=== PATIENT | male | born 1950 | race Two or more races ===

== ENCOUNTER 2024-04-03 06:22 | Inpatient (IN) | payer MEDICARE, OTHER ==
[2024-03-31 11:24] LABS: Urine Bacteria None Seen /hpf (None Seen)
[2024-03-31 11:59] LABS: Basophils # (auto) 0 10 ^3/uL (0-0.2); Basophils % (auto) 0.2 % (0.0-2.0); Eosinophils # (auto) 0.1 10 ^3/uL (0-0.8); Eosinophils % (auto) 1.8 % (0.0-7.0); Hematocrit 40.8 % (41.0-53.0); Hemoglobin 13.5 g/dL (13.5-17.5); Lymphocytes % (auto) 13.3 % (10.0-50.0); Mean Corpuscular Hgb Conc. 33.1 g/dL (32.0-36.0); Mean Corpuscular Volume 90.7 fL (80.0-100.0); Monocytes # (auto) 0.5 10 ^3/uL (0-1.3); Monocytes % (auto) 7.4 % (0.0-12.0); Neutrophils # (auto) 5.6 10 ^3/uL (1.6-8.6); Neutrophils % (auto) 77.3 % (37.0-80.0); Platelet Count (auto) 139 10^3/uL (140-450); Red Cell Distribution Width 14.4 % (11.8-14.3); White Blood Cell 7.2 10^3/uL (4.4-10.8)
[2024-03-31 12:06] LABS: INR 1.03 (0.9-1.15); Partial Thromboplastin Time 26.9 SEC (24.5-34.5); Prothrombin Time 10.9 sec (9.3-11.8)
[2024-03-31 12:14] LABS: Urine Blood Negative /uL (Negative); Urine Clarity Clear (Clear); Urine Color Yellow (Yellow); Urine Mucus FEW (None Seen); Urine Protein, UAD 1+ (Negative); Urine Specific Gravity 1.038 (1.001-1.035); Urine Squamous Epithelial Cell FEW /hpf (<5); Urine Urobilinogen 3 mg/dL (Negative); Urine WBC 110 /HPF (0-3); Urine pH 6.5 (5.0-9.0)
[2024-03-31 12:32] LABS: Albumin 4.6 g/dL (3.2-4.8); Alkaline Phosphatase 83 U/L (46-116); Anion Gap 8 (5-15); Aspartate Aminotransferase 24 U/L (13-40); BUN/Creatinine Ratio 10.3 (10.0-20.0); Blood Urea Nitrogen 13 mg/dL (9-23); Calcium 10.3 mg/dL (8.7-10.4); Carbon Dioxide 28 mmol/L (20-31); Chloride 105 mmol/L (98-107); Potassium 5.1 mmol/L (3.5-5.1); Sodium 141 mmol/L (136-145); Total Protein 7.2 g/dL (5.7-8.2)
[2024-03-31 12:33] LABS: Alanine Aminotransferase 61 U/L (7-40); Bilirubin, Total 1.6 mg/dL (0.2-1.0); Glucose 258 mg/dL (74-106)
[~2024-04-03] VITALS: Ht 188 cm; Wt 106.6 kg
[~2024-04-03 06:22] MED LIST: ATOR80TA PO; BACL20TA PO; FLUO40CA PO; GLIM4TAB42 PO; IBUP-1456 PO; LOSA-533 PO; METF-372 PO; METO25TA5 PO; PIO30T PO
[2024-04-03] MEDS: CIPROFLOXACIN 400MG/200ML 400 ML IV ONE (06:33)
[2024-04-03] MEDS: TRANEXAMIC ACID 20 ML ONE (06:35)
[2024-04-03] MEDS: ceFAZolin 2 GM/D5W100ml 100 ML IV ONE (06:43)
[2024-04-03] MEDS: ACETAMINOPHEN IV 1000 MG/100ML (10MG/ML) IV ONE (06:45)
[2024-04-03] MEDS: GABAPENTIN 400 MG CAP PO ONE (06:45)
[2024-04-03] MEDS: oxyCODONE ER 20 MG TAB PO ONE (06:45)
[2024-04-03] MEDS: MAGNESIUM SULFATE 1GM/100ML 100 ML IV ONE (06:46)
[2024-04-03] MEDS: LIDOCAINE 2%HCL (LOCAL ANESTH.) INJ 10ml MDV ONE (06:46)
[2024-04-03] MEDS: LIDOCAINE 4MG/ML IV SOLN 500 ML IV ONE (06:46)
[2024-04-03] MEDS ORDERED: LIDOCAINE 2% TOPICAL JELLY 5 ML URJT TOP ONE (06:55)
[2024-04-03] MEDS: TRANEXAMIC ACID 10 ML ONE (06:55)
[2024-04-03] MEDS ORDERED: ROCURONIUM 10MG/ML 10ML VIAL IV ONE (06:59)
[2024-04-03] MEDS ORDERED: PROPOFOL 10 MG/ML 20 ML IV ONE ×3 (06:59→10:16)
[2024-04-03] MEDS ORDERED: GLYCOPYRROLATE 0.2 MG/ML 1ML VIAL ONE (06:59)
[2024-04-03] MEDS ORDERED: DexAMETHasone SOD PHOS 10MG/1ML VIAL INJ ONE (07:03)
[2024-04-03] MEDS ORDERED: SODIUM CHLORIDE LOCK 10 ML ONE ×2 (07:03→08:48)
[2024-04-03] MEDS ORDERED: LIDOCAINE 1% INJ PF 5ML AMP ONE (07:03)
[2024-04-03] MEDS ORDERED: ONDANSETRON HCL 4 MG/2 ML VIAL ONE (07:03)
--- NOTE | 2024-04-03 07:18 | DVHHP2 ---
History Allergies: Coded Allergies: NO KNOWN ALLERGIES (Unverified , 03/21/24) Chief Complaint: Patient is complaining of a headache, balance issues and difficulty walking due to a shuffling gait Present Illness(Onset/Duration Patient has been suffering for cervical symptoms for over a year Noncontributory in this case Exam Exam General Appearance: Normal HEENT: Normal ENT Inspection Neck: None, Non-Tender, Normal, Normal Inspection Respiratory: No Accessory Muscle Use, None Cardiovascular: No Edema, No JVD, None Gastrointestinal: Other (No abdominal complaints) Extremities: Normal capillary refill, Normal inspection, Normal range of motion Neurologic: Other (Patient states he has a shuffling type gait due to inability to biggest feet up all the way, he is also having balance issues) Cerebellar Function: Ataxia Reflexes: Normal Skin: None Plan Additional comments: Patient here is here for elective surgery with Dr. Huseyin Beltran C3-6 anterior cervical diskectomy and fusion with instrumentation and bone graft. The patient was informed of the risks and benefits of the procedure. These include but are not limited to complications of anesthesia, postoperative infection, incomplete relief of symptoms, recurrence of symptoms, damage to blood vessels, nerves and tendons, deep venous thrombosis, pulmonary embolism and possible need for repeat surgery in the future. The risks/benefits/alternatives of surgery including but not limited to pain, bleeding, infection, damage to surrounding soft tissue structures, need for reoperation or future surgery, persistent pain/disability/deformity, pseudoarthrotsis, bone graft collapse or extrusion of interbody device, instrumentation failure, need for instrumentation removal, dural tear, temporary or permanent nerve root damage, paralysis, stroke, deep vein thrombosis, pulmonary embolism, and any associated anesthetic risk (dry mouth, sore throat, dental damage, myocardial infarction, respiratory depression, blindness) were described to the patient in detail and the patient wishes to proceed. No guarantee of surgical outcome/improvement was implied. All of the questions were answered thoroughly and consents were obtained. We will obtain all the necessary preop tests in order for the patient to be cleared medically. Call with questions Tayler Woods [facility] Orthopaedic Spine Surgery nurse practitioner For Dr Lucius Beltran Patient was examined, chart reviewed, labs evaluated, and diagnostic studies and findings analyzed. Case was discussed with Dr. Huseyin Beltran who formulated the plan of care. This medical document was created using an electronic medical record system with Dragon computerized dictation system. Although this document has been carefully reviewed, there might still be some phonetic and typographical errors. These areas are purely typographical due to imperfections of the software programs, and do not reflect any compromise in the patient's medical care. ZOEY WOODS NP Apr 03, 2024 07:18
[2024-04-03] MEDS ORDERED: fentaNYL CITRATE 100 MCG/2 ML VL ONE (07:34)
[2024-04-03] MEDS ORDERED: ESMOLOL HCL 10 ML IV ONE (08:01)
[2024-04-03] MEDS ORDERED: ePHEDrine SULFATE 50 MG/ML AMP ONE (08:48)
[2024-04-03] MEDS ORDERED: NITROGLYCERIN 0.4 MG SL TAB SL PRN (10:45)
[2024-04-03] MEDS ORDERED: MORPHINE SULFATE INJ 2 MG/ml SYRG IV PRN ×2 (10:45)
--- NOTE | 2024-04-03 10:50 | DVHOP2 ---
Operative Report - 2 Report Details Date: 04/03/24 Preop Diagnosis: cervical spinal stenosis with MRI findings of cord signal changes causing myeloradiculopathy Postop Diagnosis: same as pre op Surgeon: Huseyin Beltran MD [place] Wheel Worker: Amalia Woods NP Anesthesiologist: David Rosenberg CRNA Anesthesia: General Consent: The patient was informed of the risks and benefits of the procedure. These include but are not limited to complications of anesthesia, postoperative infection, incomplete relief of symptoms, recurrence of symptoms, damage to blood vessels, nerves and tendons, deep venous thrombosis, pulmonary embolism and possible need for repeat surgery in the future. 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 Cervical Degenerative Disk Disease and Spinal Stenosis Causing incapacitating neck pain, radiculopathy and progressive neurologic deficit Procedure: Cervical 3 to 4 anterior cervical discectomy with Cervical 3-4 foraminotomies and facetectomies to decompression the spinal canal and Cervical 4 nerve roots Cervical 4 to 5 anterior cervical discectomy with Cervical 4-5 foraminotomies and facetectomies to decompression the spinal canal and Cervical 5 nerve roots Cervical 5 to 6 anterior cervical discectomy with Cervical 5-6 foraminotomies and facetectomies to decompression the spinal canal and Cervical 6 nerve roots Cervical 3-6 anterior cervical Fusion Cervical 3-6 anterior cervical instrumentation with freestanding cages Cervical 3-4 placement of allograft prosthetic device Cervical 4-5 placement of allograft prosthetic device Cervical 5-6 placement of allograft prosthetic device Microscope for micro dissection Surgeon: Huseyin Beltran MD Anesthesia: General Assist: Amalia Woods NP Fluids and EBL: see anesthesia note Procedure Note: The patient was seen in the Pre-anesthesia Care Unit and the site of the incision was initialed by me with a felt tipped marker. All questions by the patient were answered to the satisfaction of the patient and the chart was reviewed. The patient was taken to the operating room and placed supine on the [facility] top table. General anesthesia was induced. Neuromonitoring leads were placed. A rolled towel was placed between the shoulder blades to hyperextend out the chest which will allow better exposure of the cervical spine. Halter traction to 10 pounds was placed. The arms were padded and adducted to the patients side making sure all pulses in the hands were present. Tape traction was undertaken on the shoulders to give us better radiographic exposure of the distal cervical spine. A gel-pad was placed under the occiput and 5 degrees of extension was placed on the neck without adverse effects to the patient. The anterior neck was prepped and draped. Pre-operative antibiotics were given 30 minutes prior to the start of the procedure. A c-arm fluoroscope was used to ga out the incision site. At this time, a time out was taken per usual protocol. Next an incision was made through the skin with a 15 blade scalpel through the subcutaneous tissue down to the platysma. Self-retainers were placed. The platysma was incised along the longitudinal border with a Metzenbaum scissors. Blunt dissection was made through the deep cervical and pre-tracheal fascia taking care to protect the carotid sheath laterally and the Trachea/e sophagus medially. The dissection was carried down to the prevertebral fascia. Any crossing vessels were ligated using a vascular clip or coagulated with a bovie. An esophageal retractor was next used to retract the trachea/esophagus and a bent [address] through the anterior annulus of the cervical disk and a lateral C-arm fluoroscopic image was taken to confirm that we were at the correct level. Next, bovie electrocautery was used to expose the bones of cervical 3,4,5,6 and bipolar electrocuatery was used to lift up the Longus colli and capitus muscles. Black-Belt Self Retainers were used to retract the longus colli and capitus muscles bilaterally as well as the trachea/esophagus to the right and the carotid sheath to the left. Smooth thin Black-Belt retractors were placed proximally and distally and a needle was placed again in the anterior annulus of the disk and an image taken to confirm the correct level. At this point, the microscope was wheeled in and an 11 blade scalpel incised the anterior annulus of the cervical 3/4 and 4/5 and 5/6 disks. Next, straight and curved curettes removed the remainder of the disks all the way down to the posterior longitudinal ligament. Carefully, a Mike number one rongeur incised the posterior longitudinal ligament at the lateral end of the above disks and using a micro, blunt tip nerve hook to separate the posterior longitudinal ligament from the dura, alternating 1 mm and 2 mm Kerison rongeurs removed the posterior longitudinal ligament. Next, Kerison 1mm and 2 mm rongeurs were alternated to get under the uncinate processes and undercut them to perform foraminotomies and factectomies at the cervical 3/4 and 4/5 and 5/6 levels to decompress the central canal and cervical 4,5 and 6 nerve roots. Next the microscope was wheeled away and the c-arm fluoroscope was wheeled into the field and a lateral image was obtained. Increasing size graft trials were used starting at a 5 mm thick size until the proper tension in the disk space and height catholic obtained. We then placed final free standing cages at C3/4 and 4/5 and 5/6. Satisfactory placement was confirmed in the AP and lateral views using a C-arm fluoroscope. Copious irrigation of the wound with sterile saline and all bleeding was controlled before closure initiated. At this point, a [address] was [address] deep to the Platysma muscle and the Platysma was approximated with one interrupted 0-Vicryl suture. The subcutaneous tissue was closed with interrupted 2-0 vicryl sutures and the skin was closed with jono. Sterile dressings were placed and a cervical collar placed, the patient extubated, transferred to the stretcher and taken to the Recovery Room in unremarkable condition. Other Notes: Following the case, in PACU, the patient had placement of a [place] J equivalent cervical collar and external bone stimulator Condition Stable Disposition Still a Patient HUSEYIN BLETRAN MD Apr 03, 2024 10:50
[2024-04-03 10:59] VITALS: O2SAT 99
[2024-04-03] MEDS ORDERED: hydrALAZINE HCL 20 MG/ML VL IV PRN (11:15)
[2024-04-03] MEDS ORDERED: HYDROmorphone HCL 2 MG/ML VL/or syr IV PRN (11:15)
[2024-04-03] MEDS ORDERED: ePHEDrine SULFATE 50 MG/ML AMP IV PRN (11:15)
[2024-04-03] MEDS ORDERED: fentaNYL CITRATE 100 MCG/2 ML VL IV PRN (11:15)
[2024-04-03] MEDS ORDERED: NALOXONE HCL 0.4 MG/ML VIAL IV PRN (11:15)
[2024-04-03] MEDS ORDERED: FLUMAZENIL 0.1 MG/ML INJ 10ML MDV IV PRN (11:15)
[2024-04-03] MEDS ORDERED: ONDANSETRON HCL 4 MG/2 ML VIAL IV PRN (11:15)
--- NOTE | 2024-04-03 11:39 | DVH ---
C-ARM FLUOROSCOPY: PROCEDURE: Cervical spine surgery FLUOROSCOPY TIME: 14.9 seconds DAP: 0.67 mgy FINDINGS: Spot intraoperative C arm radiographs demonstrating C3-C6 surgical procedure. IMPRESSION: Please refer to surgical report for detailed findings.
--- NOTE | 2024-04-03 11:39 | DVH ---
C-ARM FLUOROSCOPY: PROCEDURE: C3 through C6 anterior cervical discectomy and fusion FLUOROSCOPY TIME: 14 sec DAP: 0.67 mgy mgy FINDINGS: Spot intraoperative C arm radiographs demonstrating c3-c6 anterior cervical discetomy and fusion. IMPRESSION: Please refer to surgical report for detailed findings.
[2024-04-03 11:57] VITALS: PULSE 66; RESP 15; O2SAT 96
[2024-04-03 13:00] VITALS: BP 155/67; PULSE 67; RESP 18; TEMP 98.1; O2SAT 95
[2024-04-03] MEDS ORDERED: KETAMINE 50mg/ML 10ml Vial (500mg/10ml) IV ONE (15:18)
[2024-04-03] MEDS: CYCLOBENZAPRINE HCL 10 MG TAB PO SCH (15:33)
[2024-04-03] MEDS: HYDROcodone-ACET 10/325MG TAB PO PRN (15:33)
[2024-04-03] MEDS: ceFAZolin 1GM/50ML 50 ML IV SCH (15:39)
[2024-04-03] MEDS: D5W/SOD CHLO 0.9% 1,000 ML IV SCH (16:39)
[2024-04-03 17:00] VITALS: BP 140/70; PULSE 67; RESP 16; TEMP 98.1; O2SAT 95
[2024-04-03] MEDS: ONDANSETRON HCL 4 MG/2 ML VIAL IV PRN (18:36)
[2024-04-03 20:00] VITALS: BP 140/51; PULSE 66; PULSE 68; RESP 17; RESP 18; TEMP 98.6; O2SAT 96; O2SAT 97
[2024-04-03] MEDS: oxyCODONE HCL 5MG TAB PO PRN (20:31)
[2024-04-03] MEDS: DOCUSATE SOD 100 MG CAP PO SCH (20:31)
[2024-04-04] VITALS (9 sets, daily range): BP systolic 120–150; BP diastolic 47–71; PULSE 62–89; RESP 14–19; TEMP 98.1–99.8; O2SAT 90–97
[2024-04-04] MEDS ORDERED: CYCL-611 PO (16:48)
[2024-04-04] MEDS ORDERED: HYDR-4798 PO (16:48)
--- NOTE | 2024-04-04 17:00 | DVHDS2 ---
ASSESSMENT ASSESSMENT Hospital Course The patient arrived for a elective spine surgery with Dr. BELTRAN. Surgery went as planned with no complications. After a short stay in the PACU patient was admitted to the hospital for postoperative care and pain management over the course of 1 postoperative days the patient was able to tolerate a diet, ambulate independently, the pain has been managed with oral analgesics. The surgical site is well-approximated with sutures, some residual drainage continues from drain insertion sites after removal, however it is manageable with daily wound care and dressing changes. Some improvement to preoperative symptoms of extremities, strength and motion. There is new post operative pain that is localized to the surgical site. The patient will follow-up with Dr. Beltran for wound check. Assessment same as pre op Problems: (1) Muscle spasms of neck Assessments: well controleed with muscle relaxers (2) Postoperative pain after spinal surgery Assessments: well controlled with current pain meds ZOEY YO NP Apr 04, 2024 17:00
--- NOTE | 2024-04-04 17:05 | DVHDS2 ---
Discharge Summary Date of Admission Apr 03, 2024 at 10:45 Date of Discharge: Apr 04, 2024 Admitting Diagnosis cervical stenosis Wounds: left anterior neck wound well approximated with suture Labs/Diagnostic Data: Laboratory Results Test 04/03/24 06:54 03/31/24 11:16 POC Glucose 257 mg/dl (70-106) White Blood Count 7.2 10^3/uL (4.4-10.8) Red Blood Count 4.50 10^6/uL (4.5-5.90) Hemoglobin 13.5 g/dL (13.5-17.5) Hematocrit 40.8 % (41.0-53.0) Mean Corpuscular Volume 90.7 fL (80.0-100.0) Mean Corpuscular Hemoglobin 30.0 pg (28.0-32.0) Mean Corpuscular Hemoglobin Concent 33.1 g/dL (32.0-36.0) Red Cell Distribution Width 14.4 % (11.8-14.3) Platelet Count 139 10^3/uL (140-450) Mean Platelet Volume 8.4 fL (6.9-10.8) Neutrophils (%) (Auto) 77.3 % (37.0-80.0) Lymphocytes (%) (Auto) 13.3 % (10.0-50.0) Monocytes (%) (Auto) 7.4 % (0.0-12.0) Eosinophils (%) (Auto) 1.8 % (0.0-7.0) Basophils (%) (Auto) 0.2 % (0.0-2.0) Neutrophils # (Auto) 5.6 10 ^3/uL (1.6-8.6) Lymphocytes # (Auto) 1.0 10 ^3/uL (0.4-5.4) Monocytes # (Auto) 0.5 10 ^3/uL (0-1.3) Eosinophils # (Auto) 0.1 10 ^3/uL (0-0.8) Basophils # (Auto) 0 10 ^3/uL (0-0.2) Nucleated Red Blood Cells 0.0 % Prothrombin Time 10.9 sec (9.3-11.8) Prothrombin Time INR 1.03 (0.9-1.15) Activated Partial Thromboplast Time 26.9 SEC (24.5-34.5) Urine Color Yellow (Yellow) Urine Clarity Clear (Clear) Urine pH 6.5 (5.0-9.0) Urine Specific [place] 1.038 (1.001-1.035) Urine Protein 1+ (Negative) Urine Ketones Negative (Negative) Urine Blood Negative /uL (Negative) Urine Nitrite 1+ (Negative) Urine Bilirubin Negative (Negative) Urine Urobilinogen 3 mg/dL (Negative) Urine Leukocyte Esterase 2+ /uL (Negative) Urine RBC 7 /hpf (0 - 3) Urine Microscopic WBC 110 /HPF (0-3) Urine Squamous Epithelial Cells Few /hpf (<5) Urine Bacteria None seen /hpf (None Seen) Urine Mucus Few (None Seen) Urine Glucose 3+ mg/dL (Normal) Sodium Level 141 mmol/L (136-145) Potassium Level 5.1 mmol/L (3.5-5.1) Chloride Level 105 mmol/L (98-107) Carbon Dioxide Level 28 mmol/L (20-31) Anion Gap 8 (5-15) Blood Urea Nitrogen 13 mg/dL (9-23) Creatinine 1.26 mg/dL (0.700-1.30) Glomerular Filtration Rate Calc 61 mL/min (>90) BUN/Creatinine Ratio 10.3 (10.0-20.0) Serum Glucose 258 mg/dL (74-106) Calcium Level 10.3 mg/dL (8.7-10.4) Total Bilirubin 1.6 mg/dL (0.2-1.0) Aspartate Amino Transferase (AST) 24 U/L (13-40) Alanine Aminotransferase (ALT) 61 U/L (7-40) Alkaline Phosphatase 83 U/L (46-116) Total Protein 7.2 g/dL (5.7-8.2) Albumin 4.6 g/dL (3.2-4.8) Other Laboratory Tests 03/31/24 11:16 Brief Hx & Hospital Course: The patient arrived for a elective spine surgery with Dr. BELTRAN. Surgery went as planned with no complications. After a short stay in the PACU patient was admitted to the hospital for postoperative care and pain management over the course of 1 postoperative days the patient was able to tolerate a diet, ambulate independently, the pain has been managed with oral analgesics. The surgical site is well-approximated with sutures, some residual drainage continues from drain insertion sites after removal, however it is manageable with daily wound care and dressing changes. Some improvement to preoperative symptoms of extremities, strength and motion. There is new post operative pain that is localized to the surgical site. The patient will follow-up with Dr. Beltran for wound check. Operations or Procedures Procedure: Cervical 3 to 4 anterior cervical discectomy with Cervical 3-4 foraminotomies and facetectomies to decompression the spinal canal and Cervical 4 nerve roots Cervical 4 to 5 anterior cervical discectomy with Cervical 4-5 foraminotomies and facetectomies to decompression the spinal canal and Cervical 5 nerve roots Cervical 5 to 6 anterior cervical discectomy with Cervical 5-6 foraminotomies and facetectomies to decompression the spinal canal and Cervical 6 nerve roots Cervical 3-6 anterior cervical Fusion Cervical 3-6 anterior cervical instrumentation with freestanding cages Cervical 3-4 placement of allograft prosthetic device Cervical 4-5 placement of allograft prosthetic device Cervical 5-6 placement of allograft prosthetic device Condition at Discharge: Good Final Diagnosis/Problems List post operative pain due to spine surgery Discharge Disposition: Home Discharge Instruct/Medications Diet: Consistent carbohydrate Diet comment: small portions and watch you sugar intake. Activity: Light activity Activity comment: continue to move you head slowly and frequently when you pain is well controlled Follow Up/Referral: keep your post op appointment Medications: RX sent to pharmacy of choice New Medications: Cyclobenzaprine HCl (Cyclobenzaprine Hydrochlo) 10 Mg Tab 10 MG PO TID for 30 Days, #90 TAB Hydrocodone-Acetaminophen (Hydrocodone Bitartrate/AC 10-325 mg) 1 Tab Tab 1 TAB PO Q6HP PRN for 10 Days, #40 TAB Continued Medications: Atorvastatin Calcium (Lipitor) 80 Mg Tab 80 MG PO DAILY, TAB Baclofen (Baclofen) 20 Mg Tab 5 MG PO DAILY, TAB Fluoxetine Hcl (Fluoxetine Hcl) 40 Mg Cap 40 MG PO DAILY, CAP Glimepiride (Glimepiride) 4 Mg Tab 4 MG PO DAILY, TAB Ibuprofen (Ibuprofen) 800 Mg Tab 800 MG PO Q8HP, TAB Losartan Potassium (Losartan Potassium) 25 Mg Tab 25 MG PO DAILY, TAB Metformin Hydrochloride (Metformin Hcl) 1,000 Mg Tab 1000 MG PO BID, TAB Metoprolol Tartrate (Metoprolol Tartrate) 25 Mg Tab 25 MG PO DAILY, TAB Pioglitazone Hydrochloride (Actos Tablet) 30 Mg Tb 45 MG PO DAILY, TAB Discharge Statement: "Patient was advised to return to the ER or call 911 if any headaches, dizziness, shortness of breath, chest pain, abdominal pain, bleeding, fevers, or worsening of medical condition. Patient was counseled about treatment plan, medications, possible side effects, patientverbalized understanding. All questions were answered to the best of my ability. This discharge took greater then 30 minutes in planning, reviewing documentation, counseling the patient, and discussing with other team members." ASSESSMENT ASSESSMENT Hospital Course The patient arrived for a elective spine surgery with Dr. BELTRAN. Surgery went as planned with no complications. After a short stay in the PACU patient was admitted to the hospital for postoperative care and pain management over the course of 1 postoperative days the patient was able to tolerate a diet, ambulate independently, the pain has been managed with oral analgesics. The surgical site is well-approximated with sutures, some residual drainage continues from drain insertion sites after removal, however it is manageable with daily wound care and dressing changes. Some improvement to preoperative symptoms of extremities, strength and motion. There is new post operative pain that is localized to the surgical site. The patient will follow-up with Dr. Beltran for wound check. Assessment well controlled with current pain meds Problems: (1) Muscle spasms of neck Assessments: well controleed with muscle relaxers (2) Postoperative pain after spinal surgery Assessments: well controlled with current pain meds ZOEY YO NP Apr 04, 2024 17:04
[2024-04-05 00:57] VITALS: BP 169/91; PULSE 78; RESP 16; TEMP 99.2; O2SAT 92
[2024-04-05 05:00] VITALS: BP 155/74; PULSE 82; RESP 12; TEMP 99.1; O2SAT 95
[2024-04-05 07:45] VITALS: RESP 16
[2024-04-05 08:00] VITALS: PULSE 75
[2024-04-05] MEDS: ACETAMINOPHEN 325 MG TAB PO PRN (08:54)
[2024-04-05 09:00] VITALS: BP 149/73; PULSE 72; RESP 18; TEMP 98.5; O2SAT 93
[2024-04-05 14:41] VITALS: TEMP 36.9
== END 2024-04-05 16:39 | disposition home health service (06) | DRG 473 ==
LOC: SUR 06:22 → TELE 10:45 → TELE-CENTR 12:02
PROVIDERS: ADMIT Orthopaedic Surgery; ATTEND Orthopaedic Surgery
PROC: 0RB30ZZ Excision of Cervical Vertebral Disc, Open Approach (ICD-10-PCS; 2024-04-03)
PROC: 01N10ZZ Release Cervical Nerve, Open Approach (ICD-10-PCS; 2024-04-03)
PROC: 00NW0ZZ Release Cervical Spinal Cord, Open Approach (ICD-10-PCS; 2024-04-03)
PROC: 0RG20A0 Fusion of 2 or more Cervical Vertebral Joints with Interbody Fusion Device, Anterior Approach, Anterior Column, Open Approach (ICD-10-PCS; principal; 2024-04-03 07:33)
DX: M48.02 Spinal stenosis, cervical region (principal); M62.838 Other muscle spasm; M50.122 Cervical disc disorder at C5-C6 level with radiculopathy
CPT/HCPCS: 36415; 72040; 76000; 80053; 81001; 82962; 85025; 85610; 85730; 86850; 86900; 86901; 87086; 87186; 97110; 97116; 97530; G0378; J0131; J1100; J2003; J2405; J2704